=== PATIENT | male | born 1980 | race Caucasian/White ===

== ENCOUNTER 2022-02-04 19:05 | Emergency (ER) | payer BC, SELFPAY ==
[2022-02-04 19:07] VITALS: BP 131/96; PULSE 92; RESP 16; TEMP 36.9; O2SAT 97; BMI 27.1
[2022-02-04 19:12] VITALS: BMI 25.7
[2022-02-04 19:15] VITALS: BP 129/87; PULSE 93; O2SAT 99
--- NOTE | 2022-02-04 19:15 | ECG_ITS ---
APPROVED REPORT Exam: Resting ECG HR:88 bpm ECG Measurements Heart Rate 88 AXES LA 179 P 63 QRSd 109 QRS 81 QT 342 T 38 QTc 387 Conclusion SINUS RHYTHM POSSIBLE INFERIOR MYOCARDIAL INFARCTION , OF INDETERMINATE AGE [30 ms Q WAVE IN II/aVF] ABNORMAL ECG UNCONFIRMED REPORT Electronically signed by : César Mackey MD 02/04/2022 21:30:34
[2022-02-04 19:17] VITALS: BP 115/79; PULSE 95; O2SAT 99
[2022-02-04 19:22] VITALS: BP 129/87; BP 129/91; BP 131/96; PULSE 96; PULSE 98
[2022-02-04 19:33] LABS: Chloride 102 mmol/L (98-107)
[2022-02-04 19:34] LABS: Potassium 3.2 mmoL/L (3.5-5.1); Sodium 138 mmol/L (136-145)
[2022-02-04 19:36] LABS: Alanine Aminotransferase 33 U/L (12-78); Alkaline Phosphatase 81 U/L (38-126); Amylase 56 U/L (30-110); Anion Gap 12.2 mEq/L (5-15); Aspartate Amino Transferase 32 U/L (17-59); Bilirubin,Total 0.6 mg/dl (0.2-1.3); Blood Urea Nitrogen 13 mg/dl (9-20); Carbon Dioxide 27 mmol/L (22.0-30.0); Creatinine Clearance Estimated 106 mL/min (50-200); Estimated Glomerular Filt Rate 67 ml/min (>60); GFR (African American) 82 ML/MIN (>60)
[2022-02-04 19:37] LABS: Albumin Level 4.5 g/dl (3.5-5.0); Albumin/Globulin Ratio 1.5 (1.1-1.8); Calcium 9.3 mg/dl (8.4-10.2); Glucose 132 mg/dl (74-100); Lipase 52 U/L (23-300); Total Protein,Serum 7.5 g/dl (6.3-8.2)
[2022-02-04 19:54] LABS: Troponin I < 0.01 ng/ml (0.00-0.034)
--- NOTE | 2022-02-04 20:15 | PC.NURSE ---
PATIENT REFUSED XRAY, AWARE
[2022-02-04 20:20] LABS: Procalcitonin 0.183 ng/mL (0.0-2.0)
--- NOTE | 2022-02-04 20:30 | HMH.EDSYNC ---
ED Disposition Clinical Impression: Vasovagal syncope Disposition: Home, Self-Care Condition on Discharge: Good Instructions: DI for Syncope in Adults (Fainting) Additional Instructions: fluids and see pcp for follow up Referrals: Dudley Perez [Primary Care Provider] - - Critical Care Critical Care Time: No Attestation: On 02/04/22, the high probability of a clinically significant, sudden or life threatening deterioration of the following system(s) required my full and direct attention, intervention and personal management. The time I documented below is in addition to time spent performing reported procedures but includes the following listed in this critical care notation. Medical Decision Making - Medical Records Medical records reviewed: Yes: I reviewed the patient's medical records. - Star Inquiry Pt receiving controlled substance: No Vital Signs: 02/04/22 19:07 02/04/22 19:15 02/04/22 19:17 Temperature 98.5 F Temperature Source Oral Pulse Rate 93 H 95 H Pulse Rate [Left Radial] 92 H Pulse Rate [Orthostatic Lying Left Radial] Pulse Rate [Orthostatic Sitting Left] Pulse Rate [Orthostatic Standing Left] Respiratory Rate 16 Blood Pressure 129/87 115/79 Blood Pressure [Orthostatic Lying Right Arm] Blood Pressure [Orthostatic Sitting] Blood Pressure [Orthostatic Standing Right Arm] Blood Pressure [Right Arm] 131/96 H Blood Pressure Mean [Right Arm] 107 Blood Pressure Source [Right Arm] Automatic Cuff 02 Sat by Pulse Oximetry 97 99 99 Oxygen Delivery Method Room Air 02/04/22 19:22 Temperature Temperature Source Pulse Rate Pulse Rate [Left Radial] Pulse Rate [Orthostatic Lying Left Radial] 98 H Pulse Rate [Orthostatic Sitting Left] 96 H Pulse Rate [Orthostatic Standing Left] 98 H Respiratory Rate Blood Pressure Blood Pressure [Orthostatic Lying Right Arm] 129/91 H Blood Pressure [Orthostatic Sitting] 131/96 H Blood Pressure [Orthostatic Standing Right Arm] 129/87 Blood Pressure [Right Arm] Blood Pressure Mean [Right Arm] Blood Pressure Source [Right Arm] 02 Sat by Pulse Oximetry Oxygen Delivery Method - Lab Data Lab results reviewed: Yes: I reviewed the patient's lab results. Lab Results 02/04/22 19:16: WBC 8.4, RBC 5.26, Hgb 16.7, Hct 49.4, MCV 94.0, MCH 31.8 H, MCHC 33.9, RDW 13.4, Plt Count 217, MPV 10.5 H, Neut % (Auto) 52.3, Lymph % (Auto) 27.6, [place] % (Auto) 12.2 H, Eos % (Auto) 5.9, Baso % (Auto) 2.0, Neut # (Auto) 4.4, Lymph # (Auto) 2.3, [place] # (Auto) 1.0, Eos # (Auto) 0.5 H, Baso # (Auto) 0.2 02/04/22 19:16: Sodium 138, Potassium 3.2 L, Chloride 102, Carbon Dioxide 27, Anion Gap 12.2, BUN 13, Creatinine 1.20, Estimated Creat Clear 106, Estimated GFR 67, Est GFR ( Amer) 82, Glucose 132 H, Calcium 9.3, Total Bilirubin 0.6, AST 32, ALT 33, Alkaline Phosphatase 81, Troponin I < 0.01, C-Reactive Protein 40.0 H, Total Protein 7.5, Albumin 4.5, Globulin 3.0, Albumin/Globulin Ratio 1.5, Amylase 56, Lipase 52, Procalcitonin 0.183 Result diagrams: 02/04/22 19:16 02/04/22 19:16 Orders (Tests/Meds): ED MEDICATIONS Generic Name Dose Route Start Last Admin Trade Name Freq PRN Reason Stop Dose Admin Sodium Chloride 1,000 mls @ 999 mls/hr 02/04/22 19:30 02/04/22 19:27 Sod Chlor 0.9% 1000ml Bag IV 02/04/22 20:30 999 mls/hr .Q1H1M GLENNY Administration Sodium Chloride 1,000 mls @ 999 mls/hr 02/04/22 19:30 02/04/22 19:28 Sod Chlor 0.9% 1000ml Bag IV 02/04/22 20:30 999 mls/hr .Q1H1M GLENNY Administration ORDERS Category Date Time Status Complete Blood Count Auto Diff Stat Lab 02/04/22 19:16 Results Erythrocyte Sedimentation Rate Stat Lab 02/04/22 19:16 Results Troponin I Q3H Lab 02/04/22 22:30 Ordered Troponin I Q3H Lab 02/05/22 01:30 Ordered Urinalysis and Microscopic Stat Lab 02/04/22 19:15 Ordered - ECG Data Tracing #1 Normal Sinus Rhythm: Yes Ischemic changes: non-specific ST-T wave ch
[2022-02-04 20:34] LABS: Basophils # 0.2 K/mm3 (0-0.2); Eosinophils # 0.5 K/mm3 (0.0-0.4); Eosinophils % 5.9 % (0.1-12.0); Hematocrit 49.4 % (42.0-52.0); Hemoglobin 16.7 g/dL (14.1-18.0); Lymphocytes # 2.3 K/mm3 (0.7-4.5); Lymphocytes % 27.6 % (10-50); Mean Corpuscular HGB Conc 33.9 g/dL (31.8-35.4); Mean Corpuscular Hemoglobin 31.8 pg (27.0-31.2); Mean Platelet Volume 10.5 fl (7.4-10.4); Monocytes % 12.2 % (1.7-9.3); Neutrophils # 4.4 K/mm3 (1.8-7.8); Neutrophils % 52.3 % (37.0-80.0); Platelet Count 217 K/mm3 (142-424); Red Blood Count 5.26 M/mm3 (4.60-6.20); Red Cell Distribution Width 13.4 % (11.5-17.5); White Blood Count 8.4 K/mm3 (4.8-10.8)
--- NOTE | 2022-02-04 20:41 | PC.NURSE ---
PT STATES HE IS GOING TO REFUSE RADIOLOGY FILMS. PT STATES HE DOES NOT FEEL LIKE HE HAS SIGNIFICANT INJURIES AND WILL COME BACK IF HE HAS FURTHER ISSUES.
[2022-02-04 20:58] VITALS: BP 129/91; PULSE 96; RESP 18; TEMP 36.8; O2SAT 97
[2022-02-04 20:58] LABS: Erythrocyte Sedimentation Rate 6 mm/hr (0-15)
== END 2022-02-04 21:00 | disposition home or self-care (01) ==
PROVIDERS: Emergency Provider Emergency Medicine; PCP Family Medicine
DX: R55 Syncope and collapse (principal); H91.90 Unspecified hearing loss, unspecified ear; Z79.52 Long term (current) use of systemic steroids; X30.XXXA Exposure to excessive natural heat, initial encounter
CPT/HCPCS: 80053; 82150; 83690; 84145; 84484; 85025; 85651; 86140; 93005; 96360; 96361; 99284

== ENCOUNTER 2022-02-16 14:48 | Emergency (ER) | payer BC, SELFPAY ==
[2022-02-16 15:20] VITALS: BP 135/85; PULSE 84; RESP 19; TEMP 36.9; O2SAT 97; BMI 27.2
[2022-02-16 15:33] LABS: Adenovirus,PCR Not Detected (NotDetected); Coronavirus NL63 Not Detected (NotDetected); Coronovirus HKU1,PCR Not Detected (NotDetected)
[2022-02-16 15:34] LABS: Bordetella Pertussis Not Detected (NotDetected); Chlamydophila Pneumoniae, PCR Not Detected (NotDetected); Coronavirus 19, PCR Not Detected (NotDetected); Coronavirus 229E Not Detected (NotDetected); Coronavirus OC43 Not Detected (NotDetected); Human Metapneumovirus Not Detected (NotDetected); Influenza A, PCR Not Detected (NotDetected); Influenza AH1, 2009 Not Detected (NotDetected); Influenza AH1, PCR Not Detected (NotDetected); Influenza AH3,PCR Not Detected (NotDetected); Influenza B, PCR Not Detected (NotDetected); Mycoplasma Pneumoniae, PCR Not Detected (NotDetected); Parainfluenza 1, PCR Not Detected (NotDetected); Parainfluenza 2, PCR Not Detected (NotDetected); Parainfluenza 3, PCR Not Detected (NotDetected); Parainfluenza 4, PCR Not Detected (NotDetected); Respiratory Syncytial Virus Not Detected (NotDetected); Rhinovirus/Enterovirus Not Detected (NotDetected)
--- NOTE | 2022-02-16 15:49 | HMH.EDUTC ---
[facility] [place] Disposition Clinical Impression: URI (upper respiratory infection) Qualifiers: URI type: unspecified URI Qualified Code(s): J06.9 - Acute upper respiratory infection, unspecified Disposition: Home, Self-Care Condition on Discharge: Good Instructions: Sore Throat, Sinusitis, DI for Sinusitis Additional Instructions: *Monitor Temp, Over the counter Motrin or Tylenol as directed/as needed Tylenol every 4 hours and Motrin every 6 hours (as long as your family doctor has told you that you can take it) for fever or pain. and straight to ER if unable to lower temp less than 101.0 after medication given *Warm salt water gargles may help to soothe the throat *Throat Lozenges *Warm fluids like tea with honey may help to soothe the throat *Sleep elevated *Humidifier/Vaporizer Your throat swab was sent for culture. Those results are typically sent to your primary care. Be sure to follow up in 2-3 days with your family doctor/primary care physician if no improvement so they can review those result and treat if necessary. If you don?t have a primary care doctor, I recommend you get one but in the mean time, you will have to return to a walk in clinic Follow up IMMEDIATELY for new or worsening symptoms or no Noticeable improvement over the next 48-72 hours. 911 for difficulty breathing or swallowing Prescriptions: methylPREDNISolone [Medrol 4mg tab] 4 mg PO DIRECTED #21 tab Transmission Status: Pending to [facility] Azithromycin [Z-Sincere 250mg Tab] 250 mg PO DIRECTED #6 tab Transmission Status: Pending to [facility] Referrals: Dudley Perez [Primary Care Provider] - As needed Forms: Work/School Release Time of Disposition: 16:47 Medical Decision Making - Star Inquiry Pt receiving controlled substance: No Star was queried for this patient: No Vital Signs: 02/16/22 15:20 02/16/22 16:38 Temperature 98.5 F 98.5 F Temperature Source Oral Pulse Rate 84 Pulse Rate [Left Brachial] 84 Respiratory Rate 19 19 Blood Pressure 135/85 Blood Pressure [Left Arm] 135/85 Blood Pressure Mean [Left Arm] 101 Blood Pressure Source [Left Arm] Automatic Cuff Blood Pressure Position [Left Arm] Sitting 02 Sat by Pulse Oximetry 97 Oxygen Delivery Method Room Air - Lab Data Lab results reviewed: Yes: I reviewed the patient's lab results. Lab Results 02/16/22 15:00: Group A Strep Rapid Negative Orders (Tests/Meds): ORDERS Category Date Time Status Full Resp Panel w/COVID ([facility]) Routine Lab 02/16/22 15:00 Received Strep Screen Confirmation Stat Micro 02/16/22 15:00 Received [facility] UTC HPI - General Stated complaint: congestion, sore throat, cough Time Seen by Provider: 02/16/22 15:49 Mode of Arrival: Ambulatory Source of Information: Patient Limitations: No Limitations Description of Symptoms (Recalled from Triage Doc. by RN): PATIENT C/O CONGESTION, SINUS DRAINAGE, COUGH, LOW-GRADE FEVER, AND SORE THROAT X 1 WEEK HEENT Symptoms (Recalled from RN notes): Yes Resp Symptoms (Recalled from RN notes): Yes Skin Symptoms (Recalled from RN notes): No MS Symptoms (Recalled from RN notes): No Functional Status (Recalled from RN notes): WNL - History of Present Illness Provider Complaint: Patient states that he has been having sinus congesiton and pressure along with sore throat, low grade fever, feeling achy and headache States that he has not felt well for about a week State that today he was still not feeling well so he came in to get checked out - Related Data Previous Rx's Medication Instructions Recorded Azithromycin [Z-Sincere 250mg Tab] 250 mg PO DIRECTED #6 tab 02/16/22 methylPREDNISolone [Medrol 4mg 4 mg PO DIRECTED #21 tab 02/16/22 tab] Allergies Allergy/AdvReac Type Severity Reaction Status Date / Time No Known Allergies Allergy Verified 02/16/22 15:38 - Worker's Comp Is this a Worker's Comp case?: No [facility] History - Hepat
[2022-02-16 16:28] LABS: Strep Scrn Group A (Rapid) Negative (Negative)
[2022-02-16 16:38] VITALS: BP 135/85; PULSE 84; RESP 19; TEMP 36.9; O2SAT 97
== END 2022-02-16 16:51 | disposition home or self-care (01) ==
PROVIDERS: Emergency Provider Nurse Practitioner; PCP Family Medicine
DX: J06.9 Acute upper respiratory infection, unspecified (principal); R09.81 Nasal congestion; R51.9 Headache, unspecified; Z79.52 Long term (current) use of systemic steroids; Z79.899 Other long term (current) drug therapy; Z20.822 Contact with and (suspected) exposure to COVID-19
CPT/HCPCS: 87430; 87581; 87632; 87798; 99213; C9803; G0463; U0003; U0005

== ENCOUNTER 2022-07-18 09:13 | Emergency (ER) | payer BC, SELFPAY ==
--- NOTE | 2022-07-18 10:01 | EXP.UTC ---
Discharge Plan Disposition Patient Disposition: Home, Self-Care Condition: Good Prescriptions Prescriptions: New azithromycin [Zithromax] 250 mg tablet 250 mg PO UD DOSE PK Qty: 6 0RF Rx Instructions: Take two (2) tablets today, then one (1) tablet days #2 thru #5 benzonatate [benzonatate] 100 mg capsule 100 mg PO TIDP PRN (Reason: Cough) Qty: 30 0RF methylprednisolone 4 mg Tablets,Dose Pack 4 mg PO DIRECTED Qty: 21 0RF No Action azithromycin 250 MG tablet 250 mg PO DIRECTED Qty: 6 0RF Rx Instructions: Take two (2) tablets on day #1, then one (1) tablet day #2 thru #5 methylprednisolone 4 MG tablet 4 mg PO DIRECTED Qty: 21 0RF Rx Instructions: Take as directed on package instructions Referrals Follow up/Referrals: Dudley Perez [Primary Care Provider] - See instructions Activity Restrictions/Add. Instructions Additional Instructions/Restrictions: Drink plenty of fluids. Take tylenol or ibuprofen for pain or fever. Take the medications as directed. Follow up with your regular doctor. GO TO THE ER FOR ANY WORSENING SYMPTOMS Clinical Impressions Clinical Impression: Bronchitis, Sinusitis Stand Alone Forms Stand Alone Forms: Work/School Release Instructions Patient Instructions: Sinusitis, DI for Sinusitis Discharge ED Provider: Uday Verdin [facility] General Stated complaint: cough, ESCOBAR Time Seen by Provider: 07/18/22 10:01 History of Present Illness Provider Complaint: He states that for the past 2 days he has had a cough, sinus congestion, sore throat and he has felt bad. Related Data Previous Rx's Medication Instructions Recorded azithromycin 250 mg tablet 250 mg PO DIRECTED #6 tabs 02/16/22 methylprednisolone 4 mg tablet 4 mg PO DIRECTED #21 tabs 02/16/22 azithromycin 250 mg tablet 250 mg PO UD DOSE PK #6 tabs 07/18/22 (Zithromax) benzonatate 100 mg capsule 100 mg PO TIDP PRN Cough #30 caps 07/18/22 methylprednisolone 4 mg tablets in 4 mg PO DIRECTED #21 tabs 07/18/22 a dose pack Allergies Allergy/AdvReac Type Severity Reaction Status Date / Time No Known Allergies Allergy Verified 07/18/22 10:07 [facility] Social History (Reviewed 07/18/22 @ 10:45 by ALLYSON Law Smoking Status: Never smoker alcohol intake: never current occupational status: other Travel in the last 8 weeks: None ROS Obtained: Yes All systems reviewed & no additional complaints except as documented Constitutional Constitutional: Reports chills and Denies fever(s) Eyes Eyes: Denies eye discharge ENT Ears, Nose, Mouth, and Throat: Reports as per HPI Cardiovascular Cardiovascular: Denies chest pain Respiratory Respiratory: Denies chest congestion and Reports cough Gastrointestinal Gastrointestingal: Reports nausea; Denies abdominal pain, constipation, cramping, diarrhea or vomiting Musculoskeletal Musculoskeletal: Denies arthralgias Integumentary/Breasts Skin/Breast: Denies rash Neurologic Neurologic: Denies paresthesias Physical Exam General General appearance: alert and in no apparent distress Head Head exam: atraumatic, normocephalic and normal inspection Eye Eye exam: Present normal appearance, PERRL and EOMI ENT ENT exam: Present normal exam, normal oropharynx, mucous membranes moist, TM's normal bilaterally and normal external ear exam Neck Neck exam: Present normal inspection, full ROM and trachea midline; Absent meningismus or lymphadenopathy Chest Chest inspection: Present normal inspection and symmetric chest wall rise; Absent tenderness Respiratory Respiratory exam: Present normal lung sounds bilaterally; Absent respiratory distress Cardiovascular Cardiovascular exam: Present regular rate and normal rhythm; Absent JVD Abdominal Exam Abdominal exam: Present soft and normal bowel sounds; Absent distention, tenderness or guarding Extremities Exam Extremities exam: Present normal inspection, full RO
[2022-07-18 10:04] VITALS: BP 129/84; PULSE 89; RESP 18; TEMP 36.9; O2SAT 99; BMI 27.1
[2022-07-18 10:45] LABS: UTC Influenza A Antigen Negative (Negative); UTC Strep Screen (Rapid) Negative (Negative)
[2022-07-18 10:46] LABS: UTC Influenza B Antigen Negative (Negative)
[2022-07-18 10:53] VITALS: BP 129/84; PULSE 89; RESP 18; TEMP 36.9
== END 2022-07-18 11:02 | disposition home or self-care (01) ==
PROVIDERS: Emergency Provider Nurse Practitioner Family; PCP Family Medicine
DX: J02.9 Acute pharyngitis, unspecified (principal); R05.9 Cough, unspecified; R51.9 Headache, unspecified; R09.81 Nasal congestion; Z79.51 Long term (current) use of inhaled steroids; Z79.52 Long term (current) use of systemic steroids
CPT/HCPCS: 87804; 87880; 96372; 99213; G0463

== ENCOUNTER 2024-06-10 05:06 | Emergency (ER) | payer BC, SELFPAY ==
[2024-06-10 05:07] VITALS: BP 120/96; PULSE 81; RESP 23; TEMP 36.6; O2SAT 98; BMI 28.1
--- NOTE | 2024-06-10 05:18 | ED_ITS ---
Discharge Plan Disposition Patient Disposition: Home, Self-Care Condition: Good Prescriptions Prescriptions: New epinephrine 0.3 mg/0.3 mL auto-injector 0.3 mg IM Q10M PRN (Reason: anaphylaxis) Qty: 2 0RF Rx Instructions: for 2 doses No Action azithromycin 250 MG tablet 250 mg PO DIRECTED Qty: 6 0RF Rx Instructions: Take two (2) tablets on day #1, then one (1) tablet day #2 thru #5 methylprednisolone 4 MG tablet 4 mg PO DIRECTED Qty: 21 0RF Rx Instructions: Take as directed on package instructions azithromycin [Zithromax] 250 mg tablet 250 mg PO UD DOSE PK Qty: 6 0RF Rx Instructions: Take two (2) tablets today, then one (1) tablet days #2 thru #5 benzonatate [benzonatate] 100 mg capsule 100 mg PO TIDP PRN (Reason: Cough) Qty: 30 0RF methylprednisolone 4 mg Tablets,Dose Pack 4 mg PO DIRECTED Qty: 21 0RF Referrals Follow up/Referrals: Provider,Referral, [Primary Care Provider] - See instructions Activity Restrictions/Add. Instructions Additional Instructions/Restrictions: You were evaluated in the emergency department today. 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 Please follow-up closely with your primary care provider. I feel you would likely benefit from a referral to an bridal stylist sales consultant. Return to the emergency department right away for new or worsening symptoms Clinical Impressions Clinical Impression: Anaphylaxis Qualifiers: Encounter type: initial encounter Qualified Code(s): T78.2XXA - Anaphylactic shock, unspecified, initial encounter Stand Alone Forms Stand Alone Forms: Work/School Release Instructions Patient Instructions: DI for Anaphylaxis, DI for Food Allergy Print Language Print Language: Indonesian Discharge ED Provider: Lc Padron General Adult HPI <Lc Padron MD - Last Filed: 06/10/24 07:02> General Chief complaint: Allergic Reaction Stated complaint: allergic reaction, swelling, trouble breathing Time Seen by Provider: 06/10/24 05:08 History of Present Illness HPI narrative: 43-year-old male without significant past medical history presents for concern for drug reaction. He has had a couple episodes like this in the past but this is more severe than normal. He reports that he ate at [employer] yesterday and also ate at the [employer]. Has not denies any ingestions. Denies any daily medications or medications last night. He woke up around 3 AM with diffuse itching, feeling dizzy and lightheaded, feeling like his tongue was swollen. He was having difficulty ambulating. His significant other woke up and gave him 50 mg of p.o. Benadryl but symptoms did not improve. He reports that he did have some tongue swelling after eating [place] food a few weeks ago, but it resolved spontaneously and was not associated with the generalized itching. Related Data Previous Rx's ?Medication ?Instructions ?Recorded azithromycin 250 mg tablet 250 mg PO DIRECTED #6 tabs 02/16/22 methylprednisolone 4 mg tablet 4 mg PO DIRECTED #21 tabs 02/16/22 azithromycin 250 mg tablet 250 mg PO UD DOSE PK #6 tabs 07/18/22 (Zithromax) benzonatate 100 mg capsule 100 mg PO TIDP PRN Cough #30 caps 07/18/22 methylprednisolone 4 mg tablets in 4 mg PO DIRECTED #21 tabs 07/18/22 a dose pack epinephrine 0.3 mg/0.3 mL 0.3 mg (0.3 mL) IM Q10M PRN 06/10/24 injection, auto-injector anaphylaxis #2 ea Allergies Allergy/AdvReac Type Severity Reaction Status Date / Time No Known Allergies Allergy Verified 07/18/22 10:07 COUNTS INCLUDE 234 BEDS AT THE [facility] <Lc Padron MD - Last Filed: 06/10/24 07:02> COUNTS INCLUDE 234 BEDS AT THE [facility] Disclaimer: The information contained in this section may have been updated after the patient was seen, as this information can be updated by other users. Social History (Updated 07/18/22 @ 10:46 by Uday Verdin APRN) Smoking Status: Never smoker alcohol intake: never current occupational status: other Travel in the last 8 weeks: None Other Medical History Have you received the Flu Vaccine for this season: Yes Have you received the Pneumonia Vaccine: No <Lc Padron MD - Last Filed: 06/10/24 07:02> ROS Obtained: Yes All systems reviewed & no additional complaints except as documented Physical Exam <Lc Padron MD - Last Filed: 06/10/24 07:02> General General appearance: alert and anxious Head Head exam: atraumatic and normocephalic Eye Eye exam: Present normal appearance, PERRL and EOMI ENT ENT exam: Present normal oropharynx, normal external ear exam and other (Tongue is swollen from normal size) Neck Neck exam: Present normal inspection and full ROM Chest Chest inspection: Present normal inspection and symmetric chest wall rise; Absent tenderness Respiratory Respiratory exam: Present normal lung sounds bilaterally; Absent respiratory distress or wheezes Cardiovascular Cardiovascular exam: Present regular rate and normal rhythm Abdominal Exam Abdominal exam: Present soft; Absent distention, tenderness or guarding Extremities Exam Extremities exam: Present normal inspection; Absent edema or joint swelling Back Exam Back exam: Present normal inspection; Absent tenderness Neurological Exam Neurological exam: Present alert and oriented X3; Absent motor sensory deficit Psychiatric Psychiatric exam: Present normal affect and normal mood Skin Skin exam: Present warm, dry, normal color, rash (Diffuse hives over the chest abdomen pelvis and extremities, erythema of the face) and erythema (Generalized) Lymphatic Lymphatic Findings: no adenopathy Medical Decision Making <Lc Padron MD - Last Filed: 06/10/24 07:02> Medical Records Medical records reviewed: Yes I reviewed the patient's medical records. Screening: Per USPSTF and CDC recommendations, given the prevalence of disease in our region, it is our hospital?s policy to screen for HIV and viral Hepatitis for all patients aged 18 and over and those with ongoing risk factors. Star Inquiry Pt receiving controlled substance: No Star was queried for this patient: No Vital Signs: 06/10/24 05:07 06/10/24 07:49 06/10/24 07:54 Temperature 97.8 F Temperature Source Oral Pulse Rate 53 L 52 L Pulse Rate [Right] 81 Respiratory Rate 23 Blood Pressure 90/62 L 94/56 L Blood Pressure [Right Arm] 120/96 H Blood Pressure Mean [Right Arm] 104 Blood Pressure Source [Right Arm] Automatic Cuff 02 Sat by Pulse Oximetry 98 96 96 Oxygen Delivery Method Room Air Room Air Room Air 06/10/24 08:00 Temperature Temperature Source Pulse Rate 57 L Pulse Rate [Right] Respiratory Rate Blood Pressure 96/61 L Blood Pressure [Right Arm] Blood Pressure Mean [Right Arm] Blood Pressure Source [Right Arm] 02 Sat by Pulse Oximetry 95 Oxygen Delivery Method Room Air Lab Data Lab results reviewed: Yes I reviewed the patient's lab results. Orders (Tests/Meds): ED MEDICATIONS Generic Name Dose Route Start Last Admin Trade Name Freq PRN Reason Stop Dose Admin Sodium Chloride 8 ml 06/10/24 05:15 06/10/24 05:36 Sodium Chloride 0.9% 10ml Vial IV 07/10/24 05:14 8 ml NEEDED PRN Administration dilute pepcid Discontinued Medications Generic Name Dose Route Start Last Admin Trade Name Freq PRN Reason Stop Dose Admin Epinephrine HCl 0.3 mg 06/10/24 05:15 06/10/24 05:19 Epinephrine 1 Mg/Ml Ampul IM 06/10/24 05:16 0.3 mg ONCE ONE Administration Famotidine 20 mg 06/10/24 05:15 06/10/24 05:36 Famotidine 20mg/2ml Vial IV 06/10/24 05:16 20 mg ONCE ONE Administration Lactated Ringer's 1,000 mls @ 999 mls/hr 06/10/24 05:15 06/10/24 05:37 Lactated Ringer's 1000 Ml Bag IV 06/10/24 06:15 999 mls/hr .Q1H1M GLENNY Administration Methylprednisolone Sodium Succinate 125 mg 06/10/24 05:15 06/10/24 05:36 Methylprednisolone Sod Succ 125mg Vial IM 06/10/24 05:16 125 mg ONCE ONE Administration Medical Decision Narrative: 43-year-old male without significant past medical history presents for multiple complaints including diffuse hives and itchiness, tongue swelling, shakiness, nausea. History was obtained via interactive discussion with patient, family. On arrival, patient is [afebrile, hemodynamically stable, satting appropriately, alert, oriented x4, GCS 15], moving all extremities spontaneously. Full physical exam performed and significant for swollen tongue without significant s ubmandibular fullness, no significant respiratory distress at this time, patient has diffuse hives on exam as well. Clear lungs bilaterally Differential includes but is not limited to anaphylaxis, allergic reaction, angioedema, atopic dermatitis, gastroenteritis. Given multiple organ system involvement, I am concerned for anaphylactic reaction. Patient was given 0.3 mg IM epi, 125 IV Solu-Medrol, 20 mg IV Pepcid. Patient was given 50 mg of Benadryl by significant other prior to arrival. Patient was then placed in ED observation status for continued cardiac monitoring and to gauge the necessity of repeat epinephrine intervention. [] was considered, but deemed unnecessary due to []. Given patient history, exam and workup, patient's presentation most likely represents []. <Niharika Beltran, DO - Last Filed: 06/10/24 08:23> Vital Signs: 06/10/24 05:07 06/10/24 07:49 06/10/24 07:54 Temperature 97.8 F Temperature Source Oral Pulse Rate 53 L 52 L Pulse Rate [Right] 81 Respiratory Rate 23 Blood Pressure 90/62 L 94/56 L Blood Pressure [Right Arm] 120/96 H Blood Pressure Mean [Right Arm] 104 Blood Pressure Source [Right Arm] Automatic Cuff 02 Sat by Pulse Oximetry 98 96 96 Oxygen Delivery Method Room Air Room Air Room Air 06/10/24 08:00 Temperature Temperature Source Pulse Rate 57 L Pulse Rate [Right] Respiratory Rate Blood Pressure 96/61 L Blood Pressure [Right Arm] Blood Pressure Mean [Right Arm] Blood Pressure Source [Right Arm] 02 Sat by Pulse Oximetry 95 Oxygen Delivery Method Room Air Orders (Tests/Meds): ED MEDICATIONS Generic Name Dose Route Start Last Admin Trade Name Freq PRN Reason Stop Dose Admin Sodium Chloride 8 ml 06/10/24 05:15 06/10/24 05:36 Sodium Chloride 0.9% 10ml Vial IV 07/10/24 05:14 8 ml NEEDED PRN Administration dilute pepcid Discontinued Medications Generic Name Dose Route Start Last Admin Trade Name Freq PRN Reason Stop Dose Admin Epinephrine HCl 0.3 mg 06/10/24 05:15 06/10/24 05:19 Epinephrine 1 Mg/Ml Ampul IM 06/10/24 05:16 0.3 mg ONCE ONE Administration Famotidine 20 mg 06/10/24 05:15 06/10/24 05:36 Famotidine 20mg/2ml Vial IV 06/10/24 05:16 20 mg ONCE ONE Administration Lactated Ringer's 1,000 mls @ 999 mls/hr 06/10/24 05:15 06/10/24 05:37 Lactated Ringer's 1000 Ml Bag IV 06/10/24 06:15 999 mls/hr .Q1H1M GLENNY Administration Methylprednisolone Sodium Succinate 125 mg 06/10/24 05:15 06/10/24 05:36 Methylprednisolone Sod Succ 125mg Vial IM 06/10/24 05:16 125 mg ONCE ONE Administration Medical Decision Narrative: 43-year-old male without significant past medical history presents for multiple complaints including diffuse hives and itchiness, tongue swelling, shakiness, nausea. History was obtained via interactive discussion with patient, family. On arrival, patient is [afebrile, hemodynamically stable, satting appropriately, alert, oriented x4, GCS 15], moving all extremities spontaneously. Full physical exam performed and significant for swollen tongue without significant submandibular fullness, no significant respiratory distress at this time, patient has diffuse hives on exam as well. Clear lungs bilaterally Differential includes but is not limited to anaphylaxis, allergic reaction, an gioedema, atopic dermatitis, gastroenteritis. Given multiple organ system involvement, I am concerned for anaphylactic reaction. Patient was given 0.3 mg IM epi, 125 IV Solu-Medrol, 20 mg IV Pepcid. Patient was given 50 mg of Benadryl by significant other prior to arrival. Patient was then placed in ED observation status for continued cardiac monitoring and to gauge the necessity of repeat epinephrine intervention. Devin DO: I assumed care of the patient at 0700. On subsequent reassessments, he is resting company with improved symptoms. He has had no airway compromise, abdominal symptoms, or significant changes in vital signs. He is feeling better. Given reassuring workup and exam, it is felt that the patient is appropriate for discharge at 0830 after 3 hours in ED observation. I had a [id number] visit with the patient when providing discharge instructions. The total time involved in discharging this patient was less than 30 minutes. Patient was given prescription for EpiPen as well as instructions for close outpatient follow-up and strict return precautions. He was discharged after all questions were answered. Procedures <Lc Padron MD - Last Filed: 06/10/24 07:02> Risk/Benefits of Procedure(s) Were Explained: Yes Limited Ultrasound Indication:: Ultrasound IV Long 18-gauge IV was placed in the right forearm under direct ultrasound guidance by me. Images were saved to the patient's permanent record. Patient tolerated procedure well with no complications. Critical Care <Lc Padron MD - Last Filed: 06/10/24 07:02> Critical Care Time Critical Care Time: Yes Attestation: On 06/10/24, the high probability of a clinically significant, sudden or life threatening deterioration of the following system(s) required my full and direct attention, intervention and personal management. The time I documented below is in addition to time spent performing reported procedures but includes the following listed in this critical care notation. Total Time Total Critical Care Time: 40
[2024-06-10] MEDS: EPINEPHrine 1 MG/ML AMPUL 0.3 MG IM (05:19)
[2024-06-10] MEDS: SODIUM CHLORIDE 0.9% 10ML VIAL 8 ML IV (05:36)
[2024-06-10] MEDS: METHYLPREDNISOLONE SOD SUCC 125MG VIAL 125 MG IM (05:36)
[2024-06-10] MEDS: FAMOTIDINE 20MG/2ML VIAL 20 MG IV (05:36)
[2024-06-10] MEDS: LACTATED RINGERS 1000ML 1,000 ML 999 ML IV (05:37)
[2024-06-10 07:49] VITALS: BP 90/62; PULSE 53; O2SAT 96
[2024-06-10 07:54] VITALS: BP 94/56; PULSE 52; O2SAT 96
[2024-06-10 08:00] VITALS: BP 96/61; PULSE 57; O2SAT 95
[2024-06-10 08:36] VITALS: BP 108/71; PULSE 63; RESP 14; TEMP 36.7
== END 2024-06-10 08:38 | disposition home or self-care (01) ==
PROVIDERS: Emergency Provider Emergency Medicine
DX: T78.2XXA Anaphylactic shock, unspecified, initial encounter (principal)
CPT/HCPCS: 96372; 96374; 99291; J2919; J7120; S0028